=== PATIENT | male | born 1980 | race Caucasian/White ===

== ENCOUNTER → 2018-02-18 | Outpatient (CLI) | payer OTHER | LOC: ULTRA 07:56 | DX: K76.0 Fatty (change of) liver, not elsewhere classified (principal); E78.5 Hyperlipidemia, unspecified ==

== ENCOUNTER → 2018-02-18 | Outpatient (CLI) | payer OTHER | LOC: CAT 08:02 | DX: Z13.6 Encounter for screening for cardiovascular disorders (principal) ==